=== PATIENT | male | born 1985 | race Caucasian/White ===

== ENCOUNTER 2018-04-02 07:35 | Emergency (ER) | payer SELFPAY ==
[2018-04-02 07:45] VITALS: BP 122/80
[2018-04-02] MEDS ORDERED: MOTRIN PO ONE (08:14)
[2018-04-02] MEDS ORDERED: TRIPLE ANTIBIOTIC TP ONE (08:14)
[2018-04-02] MEDS ORDERED: BOOSTRIX IM ONE (08:14)
--- NOTE | 2018-04-02 08:14 | Emergency Department Report ---
Abscess Boil HPI - HPI Chief Complaint: Skin/Abscess/Foreign Body Stated Complaint: LEFT KNEE PAIN Time Seen by Provider: 04/02/18 07:59 Duration: 3 Days Location: Lower Extremity (left knee) Severity: Moderate (9/10) History: Yes Pain (left knee due to abscess), Yes Purulent Drainage (that he tried to squeeze pus out of knee.), No Fever, No Numbness, No Foreign Body, No Previous History, No Insect Bite HPI: This is a 33-year-old male here report that he has abscess on his left knee distress reddened and swollen. He said he tried to pick it and pus came out of it. He is reporting pain 9 out of 10 and worse with movement. Tetanus vaccine is not up-to-date. Denies any radiation of pain. No medication taken for pain. Pain alleviated with rest and exacerbated with movement Home Medications: Previous Rx's Medication Instructions Recorded Last Taken Type Cephalexin [Keflex] 500 mg PO Q8HR 10 Days #30 cap 04/02/18 Unknown Rx Ibuprofen [Motrin] 800 mg PO Q8HR PRN #15 tablet 04/02/18 Unknown Rx Allergies/Adverse Reactions: Allergies Allergy/AdvReac Type Severity Reaction Status Date / Time No Known Allergies Allergy Unverified 12/19/15 09:34 ED Review of Systems ROS: Stated complaint: LEFT KNEE PAIN Other details as noted in HPI Constitutional: denies: chills, fever Respiratory: denies: cough, shortness of breath, SOB with exertion, SOB at rest , stridor, wheezing Cardiovascular: denies: chest pain, palpitations, edema, syncope Gastrointestinal: denies: abdominal pain, nausea, vomiting, diarrhea Musculoskeletal: joint swelling, arthralgia. denies: back pain, myalgia Skin: other (abscess to right knee). denies: rash, lesions Neurological: denies: headache, numbness, paresthesias, abnormal gait, vertigo ED Past Medical Hx - Past Medical History Previous Medical History?: No - Surgical History Past Surgical History?: Yes Additional Surgical History: LEFT LEG SURGERY -ORTHO. LEFT ARM-ORTHO - Family History Family history: hypertension - Social History Smoking Status: Current Every Day Smoker Substance Use Type: None - Medications Home Medications: Home Medications Medication Instructions Recorded Confirmed Last Taken Type Cephalexin [Keflex] 500 mg PO Q8HR 10 Days #30 cap 04/02/18 Unknown Rx Ibuprofen [Motrin] 800 mg PO Q8HR PRN #15 tablet 04/02/18 Unknown Rx ED Abscess Boil Physical Exam - Exam General: Vital signs noted. No distress. Alert and acting appropriately. This is a 33-year-old male well-nourished well-developed in no acute distress. Front/Back of Body, Lg (Color): 1 - Patient with 1 cm indurated fluctuant area with drainage coming from opening the center of abscess. He is additional centimeter of erythema surrounding indurated area totaling 2 cm. Abscess is already draining pus. No odor. Size: 2 cm Exam: Yes Tenderness (left knee abscess), Yes Fluctuance, Yes Surrounding Cellulites/Erythema, Yes Normal Neurologic Exam (alert and oriented 3, normal gait), Yes Normal Circulation (No cce. + 2 pulses in all extremities, no neurovascular compromise), No Lymphangitis, No Crepitation, No Heart Murmur ( S1S2) Exam: Lungs: Clear to auscultation bilaterally, no rhonchi or rales I & D Note - I & D Note I & D Note: Abscess is already draining. Attempted to express pus from site which was successful. Patient with abscess to left knee and express approximately 1 mL of pus from area. Patient tolerated procedure well. Area cleansed with iodine and normal saline, Neosporin ointment placed a site followed by dry sterile dressing. Tetanus vaccine update and ED Course Vital Signs 04/02/18 07:44 Temperature 98.4 F Pulse Rate 88 Respiratory 16 Rate Blood Pressure 122/80 [Left] O2 Sat by Pulse 100 Oximetry - Reevaluation(s) Reevaluation #1: 04/02/18 10:27 Patient given ibuprofen 800 mg by mouth, Boostrix 0.5 mL of the tetanus and Neosporin ointment used to place a left knee abscess site. Critical care attestation.: If time is entered above; I have spent that time in minutes in the direct care of this critically ill patient, excluding procedure time. ED Medical Decision Making - Medical Decision Making This is a 33-year-old male here reports that he has abscess and drainage to left knee. He said that he burst it himself and try to squeeze pus out of it. He is here to be evaluated. His examination and found to have a 2 cm abscess to include erythema to left knee. He has pain with flexion but no restriction in movement. He also has pain with extension of left knee. Left knee abscess is already draining so I cleaned the area and drained approximately 1 mL of pus from the site. Area cleansed with iodine, normal saline and Neosporin ointment placed followed by sterile dry dressing. Patient was given Motrin for pain which helped his pain. An booster Vaccine given. I discussed his diagnosis and treatment plan and he voiced understanding. Patient does not have a primary care physician Abscess left knee-air already draining but pus expressed from site after cleaning. Neosporin ointment placed the site, booster 0.5 mL given in emergency room to date tetanus, Motrin 800 mg given for pain relief of pain. Sterile dry dressing placed the sites. Patient will be discharged home on Keflex and Motrin. Left knee pain-Motrin Educated on acute care, medication, diagnosis and treatment plan and he voiced understanding. Discharged home in stable condition, vital signs are stable he is afebrile and pain is better. He was instructed to follow up with primary care physician which she does not have one in 3 days and if he does not have one to follow-up at the outside Medical Center for follow-up abscess and cellulitis to left knee and he voiced understanding. Patient given prescription for Keflex and Motrin ED Disposition Clinical Impression: Abscess or cellulitis of knee, Arthralgia of left knee Disposition: [id number] TO HOME OR SELFCARE Is pt being admited?: No Does the pt Need Aspirin: No Condition: Stable Instructions: Arthralgia (ED), Cellulitis (ED), Abscess Incision and Drainage ( ED) Additional Instructions: Follow-up with outside Medical Center in 3 days follow-up abscess cellulitis. [facility] and left knee abscess cellulitis is getting worse he can return to the emergency room. Face warm compresses to affected area 3-4 times a day to facilitate drainage take Motrin as prescribed Take a keflex as instructed If area of cellulitis worsens, increase in pain and increase in swelling please return to the emergency room INA Please keep pack in and place to area that was incision and drained until you are seen in 4 days. Prescriptions: Cephalexin [Keflex] 500 mg PO Q8HR 10 Days #30 cap Ibuprofen [Motrin] 800 mg PO Q8HR PRN #15 tablet PRN Reason: left knee pain Referrals: [facility] [Outside] - 04/05/18 PRIMARY CARE, [Primary Care Provider] - 04/05/18 Forms: Work/School Release Form(ED)
== END 2018-04-02 11:07 | disposition home or self-care (01) ==
LOC: ED 07:35
DX: L03.116 Cellulitis of left lower limb (principal); L02.416 Cutaneous abscess of left lower limb; F17.200 Nicotine dependence, unspecified, uncomplicated; Z98.890 Other specified postprocedural states
CPT/HCPCS: 90471; 90715; 99282; A6250